=== PATIENT | female | born 1930 | race Caucasian/White ===

== ENCOUNTER 2019-02-10 02:45 | Outpatient (CLI) | payer MEDICARE | END 2019-02-10 02:46 | disposition critical access hospital (66) | LOC: EMS 02:45 | PROVIDERS: ATTEND Surgery | DX: R52 Pain, unspecified (principal); X58.XXXA Exposure to other specified factors, initial encounter; Y92.099 Unspecified place in other non-institutional residence as the place of occurrence of the external cause; F03.90 Unspecified dementia, unspecified severity, without behavioral disturbance, psychotic disturbance, mood disturbance, and anxiety | CPT/HCPCS: A0425; A0429 ==

== ENCOUNTER 2019-02-10 03:01 | Emergency (ER) | payer MEDICARE ==
--- NOTE | 2019-02-10 03:17 | ED Physician Documentation ---
PD HPI Fall - Stated complaint Stated Complaint: GLF - History obtained from History obtained from: Patient, EMS - History of Present Illness Mechanism of injury: Unknown Fall distance: From bed Where injury occurred: Home Timing - onset: Today Injury(ies) location: Right Lower Extremity Quality of pain: Pain Associated symptoms: No: LOC, AMS, Amnesia Symptoms improve with: Rest Worsens with: Movement, Palpation Contributing factors: No: Anticoagulated Similar symptoms before: Has not had sx before Recently seen: Not recently seen - Additional information Additional information: 88-year-old female has recently moved into home place has apparently a history of chronic urinary tract infection and urosepsis which is led to her being deconditioned. She is very hard of hearing and there is a question of some dementia as well. This morning she was found laying on her right side on the ground next to her bed. She was lying on her right side and initially she was thought to have some pain in the right hip. She has had that hip replaced previously. Review of Systems Unable to obtain: Dementia PD PAST MEDICAL HISTORY - Present Medications Home Medications: Ambulatory Orders Medication Instructions Recorded Confirmed Nitrofurantoin Monohyd/M-Cryst 100 mg PO BID #10 capsule 02/10/19 [Macrobid 100 mg Capsule] - Allergies Allergies/Adverse Reactions: Allergies Allergy/AdvReac Type Severity Reaction Status Date / Time No Known Drug Allergies Allergy Verified 02/10/19 05:43 PD ED PE NORMAL - Vitals Vital signs reviewed: Yes - General General: No acute distress, Well developed/nourished - HEENT HEENT: Atraumatic, PERRL, EOMI - Neck Neck: Supple, no meningeal sign, No bony TTP - Cardiac Cardiac: RRR, No murmur - Respiratory Respiratory: No respiratory distress, Clear bilaterally - Abdomen Abdomen: Soft, Non tender - Back Back: No CVA TTP, No spinal TTP - Derm Derm: Normal color, Warm and dry, No rash - Extremities Extremities: No deformity, No edema - Neuro Neuro: No motor deficit, No sensory deficit, Normal speech, Other (hearing is really bad) Eye Opening: Spontaneous Motor: Obeys Commands Verbal: Confused GCS Score: 14 - Psych Psych: Normal mood, Normal affect Results - Vitals Vitals: Vital Signs - 24 hr 02/10/19 02/10/19 02/10/19 03:13 03:14 04:45 Temperature 36.4 C L 36.2 C L Heart Rate 66 66 67 Respiratory 16 16 18 Rate Blood Pressure 128/70 128/70 134/70 H O2 Saturation 98 98 99 Oxygen O2 Source Room air - Labs Labs: Laboratory Tests 02/10/19 04:43 Urine Color YELLOW Urine Clarity CLEAR Urine pH 7.5 Ur Specific [place] 1.015 Urine Protein NEGATIVE Urine Glucose (UA) NEGATIVE Urine Ketones NEGATIVE Urine Occult Blood NEGATIVE Urine Nitrite POSITIVE H Urine Bilirubin NEGATIVE Urine Urobilinogen 0.2 (NORMAL) Ur Leukocyte Esterase NEGATIVE Urine RBC 0-5 Urine WBC 0-3 Ur Squamous Epith Cells RARE Squamous Urine Bacteria Many H Ur Microscopic Review INDICATED Urine Culture Comments INDICATED - Rads (name of study) pelvis Radiology: Prelim report reviewed (Impression: 1. No acute changes of the pelvis and hips.), EMP read indepedently, See rad report CT head without Radiology: Prelim report reviewed (Impression: Generalized age-related cortical atrophic changes without evidence of acute intracranial abnormality.), EMP read indepedently, See rad report PD MEDICAL DECISION MAKING - ED course Complexity details: reviewed results, re-evaluated patient, considered differential, d/w patient ED course: 88-year-old female with a fall out of bed does not appear to be injured related to the fall. She does have a history of urinary tract infection and she is on Xarelto. Because of the Xarelto she is run through the CAT scanner and there is no evidence of hemorrhage. Because of the history of urinary tract infection a sample is obtained and this shows positive nitrite and bacteria in the specimen does meet criteria for culture. She is administered Macrobid. Departure - Departure Disposition: 01 Home, Self Care Clinical Impression: Urinary tract infection Qualifiers: Urinary tract infection type: acute cystitis Hematuria presence: without hematuria Qualified Code(s): N30.00 - Acute cystitis without hematuria Condition: Stable Instructions: ED UTI Cystitis Female Follow-Up: Fredo Chapa MD [Primary Care Provider] - Prescriptions: Nitrofurantoin Monohyd/M-Cryst [Macrobid 100 mg Capsule] 100 mg PO BID #10 capsule
--- NOTE | 2019-02-10 03:37 | XRAY Report ---
Reason: fall out of bed hip pain/dementia Procedure Date: 02/10/2019 Accession Number: [id number] / [id number] Procedure: XR - Pelvis 1 View CPT Code: FULL RESULT: EXAM: PELVIS RADIOGRAPHY EXAM DATE: 02/10/2019 03:32 AM. CLINICAL HISTORY: Fall out of bed hip pain/dementia. COMPARISON: None. TECHNIQUE: 1 view. FINDINGS: Bones: Dynamic hip screw is noted on the right. There are no acute fractures of the pelvis nor the proximal femora. Joints: There are degenerative changes at the hip joints. Soft Tissues: Normal. No soft tissue swelling. IMPRESSION: 1. No acute changes of the pelvis and hips. RADIA
--- NOTE | 2019-02-10 04:27 | CT Report ---
Reason: fall from bed confusion on xarolto Procedure Date: 02/10/2019 Accession Number: [id number] / [id number] Procedure: CT - HEAD WO CPT Code: FULL RESULT: EXAM: CT HEAD EXAM DATE: 02/10/2019 04:19 AM. CLINICAL HISTORY: Fall from bed, confusion, on Xarelto. COMPARISON: None. TECHNIQUE: Multiaxial CT images were obtained from the foramen magnum to the vertex. Reformats: Sagittal and coronal. IV contrast: None. In accordance with CT protocol optimization, one or more of the following dose reduction techniques were utilized for this exam: automated exposure control, adjustment of mA and/or KV based on patient size, or use of iterative reconstructive technique. FINDINGS: Parenchyma: No intraparenchymal hemorrhage. No evidence of mass, midline shift, or CT findings of acute infarction. Malloy-white differentiation is distinct. Mild diffuse chronic microangiopathic white matter changes are evident. Extraaxial Spaces: Normal for age. No subdural or epidural collections identified. Ventricles: The ventricles and cortical sulci are moderately enlarged, consistent with age-related tissue loss. Sinuses and orbits: Postsurgical changes from cataract extractions are noted in the globes. There is a small mucous retention cyst present in the left maxillary sinus. The mastoid sinuses are not opacified. Bones: No evidence of fracture or calvarial defect. Other: Extensive intracranial atherosclerosis is present. IMPRESSION: Generalized age-related cortical atrophic changes without evidence of acute intracranial abnormality. RADIA
[2019-02-10 04:50] LABS: BILIRUBIN,URINE NEGATIVE (NEGATIVE); GLUCOSE, URINE (UA) NEGATIVE (NEGATIVE); KETONES,URINE (UA) NEGATIVE (NEGATIVE); LEUKOCYTE ESTERASE, URINE NEGATIVE (NEGATIVE); NITRITE,URINE POSITIVE (NEGATIVE); OCCULT BLOOD,URINE NEGATIVE (NEGATIVE); PH,URINE 7.5 PH (5.0-7.5); PROTEIN,URINE NEGATIVE (NEGATIVE); UROBILINOGEN,URINE 0.2 (NORMAL) E.U./dL (NORMAL)
[2019-02-10 04:51] LABS: CLARITY,URINE CLEAR (CLEAR)
[2019-02-10 04:55] LABS: BACTERIA,URINE Many /HPF (None Seen); RBC,URINE 0-5 /HPF (0-5); SQUAMOUS EPITHELIAL CELL,UR RARE Squamous (<= Few)
[2019-02-10] MEDS ORDERED: NITROFURANTOIN MACRO 100 MG CAPSULE PO STA (05:40)
[2019-02-10 06:04] VITALS: BP 103/88
== END 2019-02-10 08:41 | disposition home or self-care (01) ==
LOC: ED 03:01
DX: N30.00 Acute cystitis without hematuria (principal); F03.90 Unspecified dementia, unspecified severity, without behavioral disturbance, psychotic disturbance, mood disturbance, and anxiety; H91.90 Unspecified hearing loss, unspecified ear; Z91.81 History of falling; Z87.440 Personal history of urinary (tract) infections; Z79.01 Long term (current) use of anticoagulants; Z96.641 Presence of right artificial hip joint
CPT/HCPCS: 70450; 72170; 81001; 87086; 87181; 99283; A9270; 81003

== ENCOUNTER 2019-04-14 16:25 | Emergency (ER) | payer MEDICARE ==
[2019-04-14 19:15] LABS: BILIRUBIN,URINE NEGATIVE (NEGATIVE); GLUCOSE, URINE (UA) NEGATIVE (NEGATIVE); KETONES,URINE (UA) NEGATIVE (NEGATIVE); LEUKOCYTE ESTERASE, URINE NEGATIVE (NEGATIVE); NITRITE,URINE NEGATIVE (NEGATIVE); OCCULT BLOOD,URINE SMALL (NEGATIVE); PROTEIN,URINE NEGATIVE (NEGATIVE); UROBILINOGEN,URINE 1 (NORMAL) E.U./dL (NORMAL)
[2019-04-14 19:17] LABS: CLARITY,URINE CLEAR (CLEAR); HCG UR QUAL NEGATIVE
[2019-04-14 19:25] LABS: BACTERIA,URINE None Seen /HPF (None Seen); RBC,URINE 0-5 /HPF (0-5); SQUAMOUS EPITHELIAL CELL,UR NONE SEEN (<= Few)
[2019-04-14 19:34] LABS: BASOPHILS % (AUTO) 0.7 %; EOSINOPHILS # (AUTO) 0.1 10^3/uL (0.0-0.7); EOSINOPHILS % (AUTO) 1.1 %; HGB - HEMOGLOBIN 13.4 g/dL (12.0-16.0); LYMPHOCYTES # (AUTO) 1.8 10^3/uL (1.5-3.5); LYMPHOCYTES % (AUTO) 27.1 %; MEAN CORPUSCULAR HEMOGLOBIN 31.9 pg (27.0-31.0); MEAN CORPUSCULAR HGB CONC 34.1 g/dL (32.0-36.0); MEAN CORPUSCULAR VOLUME 93.4 fL (81.0-99.0); MONOCYTES # (AUTO) 0.5 10^3/uL (0.0-1.0); MONOCYTES % (AUTO) 7.6 %; NEUTROPHILS # (AUTO) 4.3 10^3/uL (1.5-6.6); NEUTROPHILS % (AUTO) 63.5 %; PLT - PLATELET COUNT 136 10^3/uL (130-450); RED CELL DISTRIBUTION WIDTH 14.6 % (12.0-15.0); WHITE BLOOD COUNT 6.7 x10^3/uL (4.8-10.8)
[2019-04-14 19:45] LABS: ALBUMIN 3.7 g/dL (3.2-5.5); ALBUMIN/GLOBULIN RATIO 1.2 (1.0-2.2); BILIRUBIN,TOTAL 0.4 mg/dL (0.2-1.0); CREATININE 0.7 mg/dL (0.4-1.0); TOTAL PROTEIN 6.7 g/dL (6.7-8.2)
--- NOTE | 2019-04-14 20:06 | ED Physician Documentation ---
History of Present Illness - Stated complaint Stated Complaint: CONFUSED/FEM - Chief complaint Chief Complaint: General - History obtained from History obtained from: Patient, Family (daughter) - History of Present Illness Timing: Today (11:00) Pain level now: 0 - Additonal information Additional information: per daughter, patient has had increased confusion since 11AM, fatigue. improved since ED arrival. recently on abx for uti. h/o severe urosepsis. had outpatient UA earlier today that revealed leukocytes Review of Systems Unable to obtain: Confused Constitutional: reports: Fatigue. denies: Fever PD PAST MEDICAL HISTORY - Past Medical History Cardiovascular: Deep vein thrombosis Endocrine/Autoimmune: Type 2 diabetes - Past Surgical History Past Surgical History: Yes Ortho: Hip replacement, Knee replacement - Present Medications Home Medications: Ambulatory Orders Medication Instructions Recorded Confirmed Nitrofurantoin Monohyd/M-Cryst 100 mg PO BID #10 capsule 02/10/19 [Macrobid 100 mg Capsule] Nitrofurantoin Monohyd/M-Cryst 100 mg PO BID #13 capsule 04/14/19 [Macrobid 100 mg Capsule] - Allergies Allergies/Adverse Reactions: Allergies Allergy/AdvReac Type Severity Reaction Status Date / Time No Known Drug Allergies Allergy Verified 04/14/19 16:30 - Social History Does the pt smoke?: No Smoking Status: Never smoker Does the pt drink ETOH?: No Does the pt have substance abuse?: No - Immunizations Immunizations are current?: No Immunizations: TDAP >10years/unknown - POLST Patient has POLST: No PD ED PE NORMAL - Vitals Vital signs reviewed: Yes - General General: No acute distress, Well developed/nourished, Other (awake alert, confused, [place]) - Neck Neck: Supple, no meningeal sign - Cardiac Cardiac: RRR - Respiratory Respiratory: No respiratory distress, Clear bilaterally - Abdomen Abdomen: Soft, Non tender Results - Vitals Vitals: Oxygen O2 Source Room air - Labs Labs: Laboratory Tests 04/14/19 04/14/19 04/14/19 19:04 19:25 19:25 WBC 6.7 RBC 4.20 Hgb 13.4 Hct 39.2 MCV 93.4 MCH 31.9 H MCHC 34.1 RDW 14.6 Plt Count 136 MPV 9.0 Neut # (Auto) 4.3 Lymph # (Auto) 1.8 [place] # (Auto) 0.5 Eos # (Auto) 0.1 Baso # (Auto) 0.0 Absolute Nucleated RBC 0.01 Nucleated RBC % 0.1 Sodium 141 Potassium 3.7 Chloride 106 Carbon Dioxide 22 Anion Gap 13.0 BUN 22 H Creatinine 0.7 Estimated GFR (MDRD) 79 L Glucose 133 H Calcium 10.0 Total Bilirubin 0.4 AST 35 ALT 32 Alkaline Phosphatase 67 Total Protein 6.7 Albumin 3.7 Globulin 3.0 Albumin/Globulin Ratio 1.2 Urine Color YELLOW Urine Clarity CLEAR Urine pH 7.0 Ur Specific [place] 1.010 Urine Protein NEGATIVE Urine Glucose (UA) NEGATIVE Urine Ketones NEGATIVE Urine Occult Blood SMALL H Urine Nitrite NEGATIVE Urine Bilirubin NEGATIVE Urine Urobilinogen 1 (NORMAL) Ur Leukocyte Esterase NEGATIVE Urine RBC 0-5 Urine WBC 0-3 Ur Squamous Epith Cells NONE SEEN Urine Bacteria None Seen Ur Microscopic Review INDICATED Urine Culture Comments NOT INDICATED Urine HCG, Qual NEGATIVE PD MEDICAL DECISION MAKING - ED course Complexity details: reviewed old records, reviewed results, re-evaluated patient, considered differential, d/w family Departure - Departure Disposition: 01 Home, Self Care Clinical Impression: Altered mental state Condition: Good Instructions: ED Confusion Follow-Up: Fredo Chapa MD [Primary Care Provider] - Prescriptions: Nitrofurantoin Monohyd/M-Cryst [Macrobid 100 mg Capsule] 100 mg PO BID #13 capsule Discharge Date/Time: 04/14/19 20:34
[2019-04-14] MEDS ORDERED: NITROFURANTOIN MACRO 100 MG CAPSULE PO STA (20:20)
[2019-04-14 20:31] VITALS: BP 138/74
== END 2019-04-14 20:34 | disposition home or self-care (01) ==
LOC: ED 16:25
DX: R41.82 Altered mental status, unspecified (principal); R53.83 Other fatigue; E11.9 Type 2 diabetes mellitus without complications; Z86.718 Personal history of other venous thrombosis and embolism
CPT/HCPCS: 36415; 80053; 81001; 81025; 85025; 99283; A9270; 81003; 87086